=== PATIENT | female | born 1970 | race Hispanic/Latino ===

== ENCOUNTER 2017-04-14 08:23 | Outpatient (CLI) | payer BC | END 2017-04-14 08:24 | disposition home or self-care (01) | LOC: BICMAMMO 08:23 | PROVIDERS: ATTEND Family Medicine | DX: Z12.31 Encounter for screening mammogram for malignant neoplasm of breast (principal) | CPT/HCPCS: 77063; 77067 ==

== ENCOUNTER 2019-04-05 08:07 | Outpatient (CLI) | payer BC ==
--- NOTE | 2019-04-05 10:35 | MMO ---
Bilateral MAMMO Bilat Screen [facility]. CLINICAL HISTORY: Patient is 48 years old and is seen for screening. The patient has no family history of breast cancer. The patient has no personal history of cancer. VIEWS: The views performed were: bilateral craniocaudal with tomosynthesis and bilateral mediolateral oblique with tomosynthesis. FILMS COMPARED: The present examination has been compared to prior imaging studies performed at [facility] on 03/06/2014, 03/17/2015, 03/17/2016 and 04/14/2017. This study has been interpreted with the assistance of computer-aided detection. MAMMOGRAM FINDINGS: The breasts are heterogeneously dense, which could obscure a lesion on mammography. There are stable benign appearing calcifications seen in both breasts. There are no suspicious masses, suspicious calcifications, or new areas of architectural distortion. IMPRESSION: THERE IS NO MAMMOGRAPHIC EVIDENCE OF MALIGNANCY. A ROUTINE FOLLOW-UP MAMMOGRAM IN 1 YEAR IS RECOMMENDED. THE RESULTS OF THIS EXAM WERE SENT TO THE PATIENT. ACR BI-RADS Category 2 - Benign finding MAMMOGRAPHY NOTE: 1. A negative mammogram report should not delay a biopsy if a dominant of clinically suspicious mass is present. 2. Approximately 10% to 15% of breast cancers are not detected by mammography. 3. Adenosis and dense breasts may obscure an underlying neoplasm. Reported by: JIE STARKEY MD Electonically Signed: [id number]
== END 2019-04-05 08:08 | disposition home or self-care (01) ==
LOC: BICMAMMO 08:07
PROVIDERS: ATTEND Family Medicine
DX: Z12.31 Encounter for screening mammogram for malignant neoplasm of breast (principal)
CPT/HCPCS: 77063; 77067

== ENCOUNTER 2019-08-16 09:10 | Outpatient (CLI) | payer BC ==
--- NOTE | 2019-08-16 10:09 | RAD ---
3 VIEWS LEFT HAND: Date: 08/16/2019 COMPARISON: None. HISTORY: Left hand joint pain for a few months. FINDINGS: 3 views of the left hand show no evidence of acute fracture or dislocation. No degenerative changes a re seen. No soft tissue swelling is seen. IMPRESSION: Unremarkable exam. POS: [facility]
--- NOTE | 2019-08-16 10:10 | RAD ---
3 VIEWS RIGHT HAND: Date: 08/16/2019 HISTORY: Bilateral hand and joint pain for a few months. FINDINGS: 3 views of the right hand show no evidence of acute fracture or dislocation. No osseous erosions are seen. No soft tissue swelling is seen. No degenerative changes are present. IMPRESSION: Unremarkable exam. POS: [facility]
== END 2019-08-16 09:11 | disposition home or self-care (01) ==
LOC: SCSRAD 09:10
PROVIDERS: ATTEND Family Medicine
DX: M79.641 Pain in right hand (principal); M79.642 Pain in left hand